=== PATIENT | male | born 1985 | race Caucasian/White ===

== ENCOUNTER 2022-11-21 10:30 | Emergency (ER) | payer OTHER, SELFPAY ==
[2022-11-21 11:00] VITALS: BP 129/77; PULSE 78; RESP 14; TEMP 36.2; O2SAT 99; BMI 29.7
--- NOTE | 2022-11-21 13:34 | ED.EYEPROB ---
HPI - Eye Problem <Ela Garcia PA-C - Last Filed: 11/21/22 13:40> General Chief complaint: Eye Problems Stated complaint: eye redness/possible pink eye Time Seen by Provider: 11/21/22 12:19 Source: patient Mode of arrival: Ambulatory History of Present Illness HPI Narrative: Patient is 37 years old male without significant medical history, who presents to ED with complaint of 2 days left eye irritation pain and increased discharge he also noticed some crust in a.m.. He tries his best not to irritate his eye however redness, and some pain prompted today's visit. No decreased visual acuity, no excessive pain as long as he does not irritate his eye. Onset (ago): day(s) (2) Eye Symptoms: redness, foreign body sensation, itching and discharge Severity scale (1-10): 3 Related Data Home Medications Medication Instructions Recorded Confirmed bupropion HCl 300 mg 24 hr tablet, 300 mg PO DAILY 11/21/22 11/21/22 extended release Previous Rx's Medication Instructions Recorded tobramycin 0.3 %-dexamethasone 0.1 2 drp EYE-LEFT QID 7 days #5 mL 11/21/22 % eye drops,suspension (TobraDex) Allergies Allergy/AdvReac Type Severity Reaction Status Date / Time No Known Drug Allergies Allergy Verified 11/21/22 11:17 Review of Systems <Ela Garcia PA-C - Last Filed: 11/21/22 13:40> Review of Systems Narrative: GENERAL: Denies chills, fatigue, malaise, fever, sweats. 12 point review of systems is negative except for those stated above Patient History <Ela Garcia PA-C - Last Filed: 11/21/22 13:40> Social History Smoking Status: Former smoker Smoking Status: Former smoker alcohol intake frequency: holidays/special occasions only Substance Use Type: does not use Exam <Ela Garcia PA-C - Last Filed: 11/21/22 13:40> Narrative Exam Narrative: GENERAL: 37 year old patient appears stated age. Well-developed patient, in mild distress. HEAD: Atraumatic. Normocephalic. EYES: Pupils equal round and reactive. Extraocular motions intact. No scleral icterus bilaterally. Left eye no hyphema, conjunctiva erythematous with some injection and minimal purulent drainage. ENT: Nose without bleeding, purulent drainage. Throat without erythema, tonsillar hypertrophy or exudate. Airway patent. NECK: Trachea midline. Non tender CARDIOVASCULAR: Regular rate and rhythm without murmurs, gallops, or rubs. RESPIRATORY: Clear to auscultation. Breath sounds equal bilaterally. No wheezes, rales, or rhonchi. GASTROINTESTINAL: Abdomen soft, non-tender, nondistended. EXTREMITIES: No edema or joint tenderness. BACK: Nontender without deformity or crepitance. No flank tenderness. NEURO: AOx3. SKIN: No rash or erythema of visible areas Initial Vital Signs Initial Vital Signs: Vital Signs Temperature 97.1 F L 11/21/22 11:00 Pulse Rate 78 11/21/22 11:00 Respiratory Rate 14 11/21/22 11:00 Blood Pressure 129/77 11/21/22 11:00 Pulse Oximetry 99 11/21/22 11:00 Oxygen Delivery Method 11/21/22 11:00 <Susana Olivier DO - Last Filed: 11/22/22 08:27> Initial Vital Signs Initial Vital Signs: Vital Signs Temperature 97.1 F L 11/21/22 11:00 Pulse Rate 78 11/21/22 11:00 Respiratory Rate 14 11/21/22 11:00 Blood Pressure 129/77 11/21/22 11:00 Pulse Oximetry 99 11/21/22 11:00 Oxygen Delivery Method 11/21/22 11:00 Course <SAAD Bolton Last Filed: 11/21/22 13:40> Vital Signs Vital signs: Vital Signs - 8 hr 11/21/22 11:00 Temperature 97.1 F L Pulse Rate 78 Respiratory Rate 14 Blood Pressure 129/77 Pulse Oximetry 99 Oxygen Delivery Method Room Air <DO Byron Garcia Last Filed: 11/22/22 08:27> Vital Signs Vital signs: Vital Signs - 8 hr 11/21/22 11:00 Temperature 97.1 F L Pulse Rate 78 Respiratory Rate 14 Blood Pressure 129/77 Pulse Oximetry 99 Oxygen Delivery Method Room Air MDM - Eye Problem <SAAD Bolton Last Filed: 11/21/22 13:40> Differential Diagnosis Differential diagnosis: Likely conjunctivitis Condition is at treatment goal?: Yes MDM Narrative Medical decision making narrative: Discussed with patient diagnosis and treatment Some etiologies for patient's symptoms considered including, but not limited to: Mechanical irritation, foreign body such as dust, even eyelash Patient's symptoms stable over duration of stay Findings and discharge diagnosis discussed with patient/family followed by verbalization of understanding Return precautions discussed with patient/family whom verbalize understanding of diagnosis and plan Discharge Plan Departure Patient Disposition: Home Clinical Impression: Bacterial conjunctivitis Instructions: DI for Conjunctivitis Activity Restrictions/Additional Instructions: *You have been diagnosed with bacterial conjunctivitis *What to do: *Please continue to take your regular medications as directed. New medication prescriptions sent to your pharmacy: TobraDex eyedrops *Please follow up with your primary care provider in 2-3 days, if symptoms continued to be bothersome *If you do not have a primary care provider please contact the [facility] Resource line at [phone]. They will ask some questions about your medical history and help get you set up with a doctor in the community. *Return to Emergency Department if you should have any new, worsening or concerning symptoms, such as change in vision acuity, worsening discharge, eye pain. Prescriptions: New tobramycin-dexamethasone [TobraDex] 0.3-0.1 % drops,suspension 2 drp EYE-LEFT QID 7 Days Qty: 5 0RF No Action bupropion HCl 300 mg tablet extended release 24 hr 300 mg PO DAILY Stand Alone Forms: Patient Portal/API <Susana Olivier DO - Last Filed: 11/22/22 08:27> Cosign ED Attending Cosyaneature Attestation: I was immediately available in the department for consultation. Documentation has been reviewed.
== END 2022-11-21 12:38 | disposition home or self-care (01) ==
PROVIDERS: Emergency Provider Physician Assistant Medical
DX: H10.89 Other conjunctivitis (principal)
CPT/HCPCS: 99281